=== PATIENT | male | born 1990 | race Two or more races ===

== ENCOUNTER 2023-07-20 15:10 | Emergency (ER) | payer OTHER ==
[~2023-07-20] VITALS: Ht 170.2 cm; Wt 54.9 kg
[2023-07-20] MEDS ORDERED: PEPCID AC20 MG PO (20:46)
[2023-07-20] MEDS ORDERED: VISTARIL25 MG PO (20:46)
== END 2023-07-20 21:58 | disposition home or self-care (01) ==
LOC: ER 15:10
DX: G47.00 Insomnia, unspecified (principal)